=== PATIENT | female | born 1980 | race Two or more races ===

== ENCOUNTER 2022-04-15 16:20 | Emergency (ER) | payer MEDICAID ==
[~2022-04-15] VITALS: Ht 157.5 cm; Wt 77.3 kg
[2022-04-15] MEDS ORDERED: LORazepam 1 MG TABLET PO ONE (17:45)
[2022-04-15] MEDS ORDERED: ACETAMINOPHEN 500 MG TABLET PO ONE (17:45)
[2022-04-15 18:01] LABS: BASOPHILS % (AUTO) 0.5 % (0.0-2.0); EOSINOPHILS % (AUTO) 1.5 % (1.0-6.0); HEMATOCRIT 30.7 % (36-46); LYMPHOCYTES # (AUTO) 2.8 K/uL (1.0-4.8); LYMPHOCYTES % (AUTO) 34.6 % (22.0-44.0); MEAN CORPUSCULAR HEMOGLOBIN 19.2 pg (26.0-34.0); MEAN CORPUSCULAR HGB CONC 29.3 G/dL (31.0-37.0); MEAN CORPUSCULAR VOLUME 66 fL (80-100); MONOCYTES # (AUTO) 0.7 K/uL (0.1-1.0); MONOCYTES % (AUTO) 8.3 % (2.0-9.0); NEUTROPHILS # (AUTO) 4.4 K/uL (1.8-7.7); NEUTROPHILS % (AUTO) 55.1 % (40.0-70.0); PLATELET COUNT (AUTO) 559 K/uL (150-450); RED BLOOD CELL COUNT(AUTO) 4.68 MIL/uL (4.00-5.20); RED CELL DISTRIBUTION WIDTH 19.4 % (11.5-14.5)
[2022-04-15 18:09] LABS: ANION GAP 10 mmol/L (8-16); CALCIUM, TOTAL 9.8 mg/dL (8.8-10.5); CARBON DIOXIDE 24 mmol/L (22-29); CHLORIDE 100 mmol/L (98-107); CREATININE 0.57 mg/dL (0.60-1.30); GLOMERULAR FILTR. RATE CALC > 60 mL/min (>60); GLUCOSE,RANDOM 94 mg/dL (70-110); POTASSIUM 3.6 mmol/L (3.5-5.1); SODIUM SERUM 134 mmol/L (136-145); UREA NITROGEN, BLOOD 10 mg/dL (7-18)
[2022-04-15 18:18] LABS: B-TYPE NATRIURETIC PEPTIDE 38 pg/mL (0-100)
[2022-04-15 18:33] LABS: ALANINE AMINOTRANSFERASE 22 U/L (12-78); ALBUMIN 4.4 g/dL (3.4-5.0); ALKALINE PHOSPHATASE 77 U/L (46-116); ASPARTATE AMINOTRANSFERASE 24 U/L (15-37); BILIRUBIN,TOTAL 0.3 mg/dL (0.1-1.0); CREATINE KINASE, TOTAL ONLY 174 U/L (26-192); TOTAL PROTEIN, SERUM 9.2 g/dL (6.4-8.2)
[2022-04-15 19:00] VITALS: BP 110/64
== END 2022-04-15 19:00 | disposition still patient (30) ==
LOC: EMS 16:28
DX: R07.9 Chest pain, unspecified (principal)
CPT/HCPCS: 71045; 80053; 82550; 83880; 84484; 84703; 85025; 85379; 93005; 99285; 36415-L1; 36415-TC

== ENCOUNTER 2022-11-13 22:49 | Emergency (ER) | payer MEDICAID ==
[~2022-11-13] VITALS: Ht 152.4 cm; Wt 64.0 kg
[2022-11-13 23:05] VITALS: TEMP 97.8
[2022-11-14] MEDS ORDERED: CefTRIAXone SODIUM 1 GM/VIAL IM ONE (00:30)
[2022-11-14] MEDS ORDERED: LIDOCAINE/PF 1% 2 ML VIAL IM ONE (00:30)
[2022-11-14] MEDS ORDERED: SULFAMETHOX/TRIMETH DS 800-160 MG/TABLET PO ONE (00:30)
[2022-11-14] MEDS ORDERED: SULF-261 PO (00:36)
[2022-11-14] MEDS ORDERED: CEPH-558 PO (00:36)
[2022-11-14 00:57] VITALS: BP 128/68; PULSE 78; RESP 16
== END 2022-11-14 01:37 | disposition home or self-care (01) ==
LOC: EMS 22:51
DX: L03.211 Cellulitis of face (principal)
CPT/HCPCS: 99283; 96372; J0696; J3490